=== PATIENT | female | born 1970 | race Asian ===

== ENCOUNTER 2019-08-06 20:42 | Emergency (ER) | payer OTHER ==
[~2019-08-06] VITALS: Ht 165.1 cm; Wt 69.0 kg
[2019-08-06 20:45] VITALS: BP 171/102
[2019-08-06] MEDS ORDERED: ACETAMINOPHEN 325MG TABLET PO ONE (22:00)
== END 2019-08-07 00:10 | disposition home or self-care (01) ==
LOC: ER 20:42
DX: M25.512 Pain in left shoulder (principal); V49.49XA Driver injured in collision with other motor vehicles in traffic accident, initial encounter; Y93.89 Activity, other specified; Y92.413 State road as the place of occurrence of the external cause; Y99.8 Other external cause status
CPT/HCPCS: 73030; 81025; 99283